=== PATIENT | female | born 1980 | race African-American/Black ===

== ENCOUNTER 2016-07-03 03:13 | Emergency (ER) | payer OTHER ==
[~2016-07-03] VITALS: Ht 157.5 cm; Wt 83.5 kg
[2016-07-03 03:16] VITALS: Ht 157.5 cm; Wt 83.5 kg
[2016-07-03] MEDS ORDERED: FAMOTIDINE 20 MG INJ IV STA (03:56)
[2016-07-03] MEDS ORDERED: SOD CHLORIDE 0.9% 500 ML IV STA (03:56)
[2016-07-03] MEDS ORDERED: morphine 2 MG INJ IV STA (03:56)
[2016-07-03] MEDS ORDERED: LIDOCAINE/MYLANTA 40 ML BTL PO STA (03:56)
[2016-07-03] MEDS ORDERED: ONDANSETRON 4 MG INJ IV STA (03:56)
[2016-07-03] MEDS ORDERED: MULTI PO (04:29)
[2016-07-03] MEDS ORDERED: CETI1TAB6 PO (04:29)
[2016-07-03] MEDS ORDERED: DOCU-159 PO (04:30)
[2016-07-03] MEDS ORDERED: [UNRECOGNIZED DRUG - CODE] PO (04:30)
[2016-07-03 04:31] LABS: ADD SCAN DIFF NO
[2016-07-03] MEDS ORDERED: LACT1CAP49 PO (04:31)
[2016-07-03 04:52] LABS: ADD UMIC YES; URINE BILIRUBIN (Dip) NEGATIVE (NEGATIVE); URINE BLOOD (Dip) NEGATIVE (NEGATIVE); URINE COLOR LT. YELLOW (YELLOW); URINE GLUCOSE (Dip) NEGATIVE (NEGATIVE); URINE KETONES (Dip) TRACE (NEGATIVE); URINE LEUKOCYTE ESTERASE (Dip) TRACE (NEGATIVE); URINE NITRITE (Dip) NEGATIVE (NEGATIVE); URINE TOTAL PROTEIN (Dip) NEGATIVE (NEGATIVE); URINE UROBILINOGEN (Dip) 1.0 E.U./dL (0.1-1.0)
[2016-07-03 04:58] LABS: BASOPHILS % 0.3 % (0.0-2.0); EOSINOPHILS # 0.1 10^3/ul (0.0-0.5); EOSINOPHILS % 2.8 % (0.0-7.0); HEMATOCRIT 40.7 % (37.0-47.0); HEMOGLOBIN 12.7 g/dl (12.0-16.0); LYMPHOCYTES # 1.4 10^3/ul (0.8-2.9); LYMPHOCYTES % 35.2 % (15.0-51.0); MEAN CORPUSCULAR HEMOGLOBIN 27.3 pg (29.0-33.0); MEAN CORPUSCULAR HGB CONC 31.2 g/dl (32.0-37.0); MEAN CORPUSCULAR VOLUME 87.5 fl (82.0-101.0); MEAN PLATELET VOLUME 11.3 fl (7.4-10.4); MONOCYTE # 0.1 10^3/ul (0.3-0.9); MONOCYTES % 3.5 % (0.0-11.0); NEUTROPHIL # 2.3 10^3/ul (1.6-7.5); NEUTROPHILS % 57.7 % (39.0-77.0); PLATELET COUNT 243 10^3/UL (140-415); RED BLOOD COUNT 4.65 10^6/ul (4.20-5.40); RED CELL DISTRIBUTION WIDTH 14.6 % (11.5-14.5)
[2016-07-03 05:15] LABS: BACTERIA,URINE FEW; SQUAMOUS EPITHELIAL CELL,UR MODERATE; URINE RBCS 0-2 /HPF (0)
--- NOTE | 2016-07-03 05:20 | RADRPT ---
PROCEDURE: ULTRASOUND LIMITED ABDOMEN CLINICAL INDICATION: 35-year-old female with abdominal pain. TECHNIQUE: Multiple sonographic of the right upper quadrant of the abdomen were obtained. The imag es were reviewed on a PACS workstation. COMPARISON: None. FINDINGS: The pancreas is partially visualized and is otherwise without abnormal echogenicity. The liver displays normal echogenicity. The liver measures 15.9 cm in length. No evidence of intrah epatic biliary ductal dilatation is seen. The portal and hepatic veins are unremarkable. The gallbladder appears distended and contains multiple shadowing stones. The gallbladder wall thic kness is within normal limits measuring 3.0 mm. No pericholecystic fluid is seen. The common bile du ct measures 4.7 mm and is not dilated. The right kidney displays normal echogenicity. The right kidney measures 11.0 cm in maximal length. No caliectasis or hydronephrosis is seen. No free fluid is seen. IMPRESSION: Cholelithiasis. .Arcenio Chatman MD, Date Time Electronically viewed and signed by .Arcenio Chatman MD, on 07/03/2016 05:19 .M/
[2016-07-03 05:22] LABS: ALBUMIN 4.6 g/dl (3.3-4.9)
[2016-07-03 05:23] LABS: POTASSIUM 3.4 mmol/L (3.5-5.1)
[2016-07-03 05:25] LABS: BILIRUBIN,INDIRECT 0.3 mg/dl (0-1.1); BILIRUBIN,TOTAL 0.3 mg/dl (0.2-1.3); CREATININE 0.87 mg/dl (0.44-1.00)
[2016-07-03 05:26] LABS: ALBUMIN/GLOBULIN RATIO 1.24; CALCIUM 9.8 mg/dl (8.4-10.2); TOTAL PROTEIN 8.3 g/dl (6.1-8.1)
--- NOTE | 2016-07-03 05:28 | ERD ---
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 She is history of gallstones. Pain is mild to moderate intensity. Denies any fevers or chills. Denies any vomiting. Has mild nausea. No other current complaints. ROS All systems reviewed and are negative except as per history of present illness. Medications Home Meds Reported Medications Lactobacillus Combination No.4 (Probiotic) 1 Each Capsule, 1 CAP PO DAILY, CAP 07/03/16 Docusate Sodium* (Docusate Sodium*) 100 Mg Capsule, 100 MG PO DAILY, #30 CAP 07/03/16 Vitamin E* (Vitamin E*) 1,000 Unit Capsule, 1000 UNIT PO DAILY, CAP 07/03/16 Multivitamins* (Theragran*) 1 Tab Tab, 1 TAB PO DAILY, TAB 07/03/16 Cetirizine/Pseudoephedrine (Zyrtec-D) 5-120 Mg Tab.er.12h, 1 TAB PO Q12, TAB 07/03/16 Allergies Allergies: Coded Allergies: No Known Allergy (Unverified , 07/03/16) PMhx/Soc History of Surgery: Yes () Anesthesia Reaction: No Hx Neurological Disorder: No Hx Respiratory Disorders: No Hx Cardiac Disorders: No Hx Psychiatric Problems: No Hx Miscellaneous Medical Probl: Yes (gallstones) Hx Alcohol Use: Yes (socially) Hx Substance Use: No Hx Tobacco Use: No Smoking Status: Never smoker Physical Exam Vitals Vital Signs Date Time Temp Pulse Resp B/P Pulse Ox O2 Delivery O2 Flow Rate FiO2 07/03/16 03:16 97.0 84 20 146/88 99 Physical Exam Const: [] Head: Atraumatic Eyes: Normal Conjunctiva ENT: Normal External Ears, Nose and Mouth. Neck: Full range of motion..~ No meningismus. Resp: Clear to auscultation bilaterally Cardio: Regular rate and rhythm, no murmurs Abd: Soft, non tender, non distended. Normal bowel sounds Skin: No petechiae or rashes Back: No midline or flank tenderness Ext: No cyanosis, or edema Neur: Awake and alert Psych: Normal Mood and Affect Result Diagram: 07/03/16 0419 Results 24 hrs Laboratory Tests Test 07/03/16 04:19 White Blood Count 4.010^3/ul Red Blood Count 4.6510^6/ul Hemoglobin 12.7g/dl Hematocrit 40.7% Mean Corpuscular Volume 87.5fl Mean Corpuscular Hemoglobin 27.3pg Mean Corpuscular Hemoglobin Concent 31.2g/dl Red Cell Distribution Width 14.6% Platelet Count 66065^3/UL Mean Platelet Volume 11.3fl Neutrophils % 57.7% Lymphocytes % 35.2% Monocytes % 3.5% Eosinophils % 2.8% Basophils % 0.3% Nucleated Red Blood Cells % 0.0/100WBC Neutrophils # 2.310^3/ul Lymphocytes # 1.410^3/ul Monocytes # 0.110^3/ul Eosinophils # 0.110^3/ul Basophils # 0.010^3/ul Nucleated Red Blood Cells # 0.010^3/ul Urine Color LT. YELLOW Urine Clarity CLEAR Urine pH 6.5 Urine Specific [place] 1.025 Urine Ketones TRACE Urine Nitrite NEGATIVE Urine Bilirubin NEGATIVE Urine Urobilinogen 1.0 E.U./dL Urine Leukocyte Esterase TRACE Urine Microscopic RBC 0-2/HPF Urine Microscopic WBC 2-5/HPF Urine Squamous Epithelial Cells MODERATE Urine Bacteria FEW Urine Hemoglobin NEGATIVE Urine Glucose NEGATIVE% Urine Total Protein NEGATIVE Current Medications Medications (Trade) Dose Ordered Sig/Abhishek Route PRN Reason Start Time Stop Time Status Last Admin Dose Admin Sodium Chloride (NS) 500 ml @ 500 mls/hr Q1H STAT IV 07/03/16 03:56 07/03/16 04:55 DC 07/03/16 04:35 Morphine Sulfate (morphine) 2 mg ONCE STAT IV 07/03/16 03:56 07/03/16 03:57 DC Ondansetron HCl (Zofran Inj) 4 mg ONCE STAT IV 07/03/16 03:56 07/03/16 03:57 DC 07/03/16 04:35 Famotidine (Pepcid Iv) 20 mg ONCE STAT IV 07/03/16 03:56 07/03/16 03:57 DC 07/03/16 04:35 Miscellaneous Medication (Gi Cocktail (2)) 40 ml ONCE STAT PO 07/03/16 03:56 07/03/16 03:57 DC 07/03/16 04:35 Procedures/MDM Medical decision-m[age] year female who looks to be symptomatic cholelithiasis. At this point is clinically stable for outpatient management she will be discharged home with pain medication. Follow-up in 8 hours for serial abdominal exams. Return sooner for any return of pain. Departure Diagnosis: Primary Impression: Gallstones Condition: Stable JESUS FERNANDO July 03, 2016 05:27
[2016-07-03] MEDS ORDERED: CIPR500T4 PO (05:43)
[2016-07-03] MEDS ORDERED: ONDA4TAB14 PO (05:43)
[2016-07-03] MEDS ORDERED: HYDR-902 PO (05:43)
[2016-07-03 06:15] VITALS: BP 138/84; PULSE 68; RESP 20; TEMP 97.2
== END 2016-07-03 06:17 | disposition home or self-care (01) ==
LOC: EEVIPCON 03:13 → E/R 03:13
DX: K80.20 Calculus of gallbladder without cholecystitis without obstruction (principal)
CPT/HCPCS: 36415; 76705; 80053; 81001; 83690; 85025; 96374; 96375; 99285; J2270; J2405; J7040; 81003